=== PATIENT | female | born 1980 | race African-American/Black ===

== ENCOUNTER 2018-09-04 06:00 | Inpatient (IN) ==
[2018-08-29 12:29] LABS: Apearance,Urine CLOUDY (Clear); Bacteria,Urine Occasional /HPF (Few); Bilirubin,Urine Negative (Negative); Blood, Urine Negative (Negative); Glucose,Urine (UA) Negative (Negative); Ketones,Urine Negative (Negative); Mucus,Urine Occasional /LPF (Occasional); Nitrite,Urine Negative (Negative); Protein,Urine Negative; RBC,Urine 4 /HPF (0-4); Squamous Epithelial Cell,Urine Occasional /HPF (0-10); Urine Color Yellow (Yellow); Urine Specific Gravity 1.019 (1.001-1.035); WBC,Urine 1 /HPF (0-6)
[2018-08-29 12:32] LABS: Basophils % 0.4 % (0.0-0.8); Eosinophils # 0.2 10*3/uL (0.0-0.87); Eosinophils % 2.3 % (0.00-10.9); Hemoglobin 12.4 GM/DL (12.0-16.0); Immature Granulocytes % 0.3 %; Immature Granulocytes Absolute 0.02 #; Lymphocytes # 2.4 10*3/uL (1.4-4.0); Lymphocytes % 32.7 % (21.3-54.2); Mean Corpuscular HGB Conc 32.6 GM/DL (32-36); Mean Corpuscular Hemoglobin 29 PG (27-34); Mean Corpuscular Volume 88.6 FL (87-102); Mean Platelet Volume 10.7 FL (9.6-12.0); Monocytes # 0.7 10*3/uL (0.11-0.8); Monocytes % 9.3 % (1.7-12.7); Platelet Count 314 T/CUMM (130-400); Red Blood Count 4.29 MC/CUMM (3.8-5.5); Red Cell Distribution Width 13.2 % (9.3-17.3); White Blood Count 7.2 T/CUMM (4-12)
[2018-08-29 13:14] LABS: Alanine Aminotransferase 20 U/L (13-56); Albumin 3.5 G/DL (3.4-5.0); Alkaline Phosphatase 75 U/L (45-117); Aspartate Amino Transferase 16 U/L (0-37); Bilirubin,Total < 0.39 MG/DL (0.2-1.0); Blood Urea Nitrogen 9 MG/DL (7-18); Glucose 76 MG/DL (74-106); Osmolality,Calculated 272.7 MOS/KG (273-304); Potassium 3.7 MMOL/L (3.5-5.1); Sodium 138 MMOL/L (136-145); Total Protein 7.5 G/DL (6.4-8.3)
[2018-08-29 13:27] LABS: Risk Ratio 3.53
[2018-08-29 13:47] LABS: HIV Antigen/Antibody Result Nonreactive (Nonreactive)
[~2018-09-04 06:00] MED LIST: AMPICILLIN/SULBACTAM 3,000 MG VIAL ONE; AMPICILLIN/SULBACTAM 3,000 MG in SODIUM CHLORIDE 0.9% 100 ML IV ONE
[2018-09-04] MEDS ORDERED: PANTOPRAZOLE 40 MG VIAL IV ONE (06:29)
[2018-09-04] MEDS: LACTATED RINGERS 1,000 ML IV SCH ×3 (06:38→19:20)
[2018-09-04] MEDS ORDERED: ceFAZolin 1,000 MG VIAL ONE (07:41)
[2018-09-04] MEDS ORDERED: METHYLENE BLUE 10 ML VIAL IV ONE ×2 (09:16→09:33)
[2018-09-04] MEDS ORDERED: SEVOFLURANE 1 UNIT/15 MINUTE INH ONE (10:35)
[2018-09-04] MEDS ORDERED: PROPOFOL 200 MG/20 ML VIAL IV ONE (10:35)
[2018-09-04] MEDS ORDERED: MIDAZOLAM 2 MG/2 ML VIAL ONE (10:35)
[2018-09-04] MEDS ORDERED: DEXAMETHASONE 10 MG/1 ML VIAL ONE (10:36)
[2018-09-04] MEDS ORDERED: fentaNYL 100 MCG/2 ML VIAL ONE ×2 (10:36)
[2018-09-04] MEDS ORDERED: ONDANSETRON 4 MG/2 ML VIAL ONE ×2 (10:36→10:50)
[2018-09-04] MEDS ORDERED: ePHEDrine 50 MG/ML AMP ONE (10:36)
[2018-09-04] MEDS ORDERED: GLYCOPYRROLATE 0.4 MG/2 ML VIAL ONE (10:36)
[2018-09-04] MEDS ORDERED: NEOSTIGMINE 10 MG/10 ML VIAL ONE ×2 (10:37)
[2018-09-04] MEDS ORDERED: ROCURONIUM 100 MG/10 ML VIAL IV ONE (10:37)
[2018-09-04] MEDS ORDERED: PHENYLEPHRINE 0.5% NASAL SPRAY 15 ML BOTTLE BOTH NARES ONE (10:38)
[2018-09-04] MEDS ORDERED: KETOROLAC 30 MG/1 ML VIAL ONE (10:38)
[2018-09-04] MEDS ORDERED: LIDOCAINE 2% TOP JELLY 5 ML TUBE TOP ONE (10:38)
[2018-09-04] MEDS ORDERED: LACTATED RINGERS 2,000 ML IV ONE (10:39)
[2018-09-04] MEDS ORDERED: ACETAMINOPHEN 1,000 MG/100 ML VIAL IV ONE (10:39)
[2018-09-04] MEDS ORDERED: PHENYLEPHRINE 1 MG/10 ML SYRINGE IV ONE (10:39)
[2018-09-04 10:40] LABS: Apearance,Urine CLEAR (Clear); Bacteria,Urine Occasional /HPF (Few); Bilirubin,Urine Negative (Negative); Blood, Urine Negative (Negative); Glucose,Urine (UA) Negative (Negative); Ketones,Urine Negative (Negative); Nitrite,Urine Negative (Negative); Protein,Urine Negative; RBC,Urine <1 /HPF (0-4); Squamous Epithelial Cell,Urine Occasional /HPF (0-10); Urine Color Yellow (Yellow); Urine Specific Gravity 1.012 (1.001-1.035); WBC,Urine 1 /HPF (0-6)
[2018-09-04] MEDS ORDERED: BENZOCAINE/MENTHOL LOZENGE 18/BOX PO PRN (10:41)
[2018-09-04] MEDS ORDERED: BISACODYL 10 MG SUPP RECTAL PRN (10:41)
[2018-09-04] MEDS ORDERED: ONDANSETRON 4 MG/2 ML VIAL IV PRN ×2 (10:41→10:54)
[2018-09-04] MEDS ORDERED: MAGNESIUM HYDROXIDE SUSP 30 ML UDCUP PO PRN (10:41)
[2018-09-04] MEDS ORDERED: ACETAMINOPHEN 325 MG TABLET PO PRN (10:41)
[2018-09-04] MEDS: HYDROmorphone 2 MG/1 ML VIAL IV PRN ×6 (10:50→14:55)
[2018-09-04] MEDS ORDERED: HYDROmorphone 2 MG/1 ML VIAL ONE (10:50)
[2018-09-04] MEDS ORDERED: MEPERIDINE 50 MG/1 ML VIAL ONE (12:45)
[2018-09-04] MEDS: MEPERIDINE 50 MG/1 ML VIAL IV PRN ×3 (12:50→20:13)
[2018-09-04] MEDS: ceFAZolin 1,000 MG in SYRINGE 1 EACH IV SCH (16:45)
[2018-09-04] MEDS: OXYBUTYNIN XL 10 MG TABLET PO SCH (16:48)
[2018-09-05] MEDS: MEPERIDINE 50 MG/1 ML VIAL IV PRN ×2 (01:13→07:32)
[2018-09-05] MEDS: ceFAZolin 1,000 MG in SYRINGE 1 EACH IV SCH (01:16)
[2018-09-05] MEDS: LACTATED RINGERS 1,000 ML IV SCH (03:35)
[2018-09-05 06:07] LABS: Hematocrit 22.3 VOL% (35.7-47.0); Hemoglobin 7.4 GM/DL (12.0-16.0); Immature Granulocytes % 0.4 %; Immature Granulocytes Absolute 0.05 #; Lymphocytes # 1.6 10*3/uL (1.4-4.0); Lymphocytes % 12.9 % (21.3-54.2); Mean Corpuscular HGB Conc 33.2 GM/DL (32-36); Mean Corpuscular Hemoglobin 29 PG (27-34); Mean Corpuscular Volume 88.1 FL (87-102); Mean Platelet Volume 11.5 FL (9.6-12.0); Monocytes # 1.2 10*3/uL (0.11-0.8); Monocytes % 10.2 % (1.7-12.7); Neutrophils # 9.3 10*3/uL (1.4-7.4); Neutrophils % 76.5 % (38.7-73.9); Platelet Count 184 T/CUMM (130-400); Red Blood Count 2.53 MC/CUMM (3.8-5.5); Red Cell Distribution Width 13.6 % (9.3-17.3); White Blood Count 12.2 T/CUMM (4-12)
[2018-09-05] MEDS ORDERED: SODIUM CHLORIDE 0.9% 1,000 ML IV PRN (07:10)
[2018-09-05] MEDS ORDERED: Dextroamphetamine/Amphetamine [Adderall Xr 30 Mg Capsule] PO SCH (09:00)
[2018-09-05] MEDS: hydroCHLOROthiazide 12.5 MG CAPSULE PO SCH (09:09)
[2018-09-05] MEDS: OXYBUTYNIN XL 10 MG TABLET PO SCH (09:12)
[2018-09-05] MEDS: DOCUSATE SODIUM 100 MG CAPSULE PO PRN ×2 (09:13→20:41)
[2018-09-05] MEDS: amLODIPine 10 MG TABLET PO SCH (09:13)
[2018-09-05] MEDS: oxyCODONE/ACETAMINOPHEN 5-325 MG TABLET PO PRN ×2 (15:14→22:35)
[2018-09-05 18:03] LABS: Basophils % 0.1 % (0.0-0.8); Eosinophils % 0.2 % (0.00-10.9); Hemoglobin 9.4 GM/DL (12.0-16.0); Immature Granulocytes % 0.4 %; Immature Granulocytes Absolute 0.06 #; Lymphocytes # 3.2 10*3/uL (1.4-4.0); Lymphocytes % 23.4 % (21.3-54.2); Mean Corpuscular HGB Conc 32.4 GM/DL (32-36); Mean Corpuscular Hemoglobin 29 PG (27-34); Mean Corpuscular Volume 89.5 FL (87-102); Mean Platelet Volume 11.3 FL (9.6-12.0); Monocytes # 1.1 10*3/uL (0.11-0.8); Monocytes % 7.7 % (1.7-12.7); Neutrophils # 9.3 10*3/uL (1.4-7.4); Neutrophils % 68.2 % (38.7-73.9); Platelet Count 184 T/CUMM (130-400); Red Blood Count 3.24 MC/CUMM (3.8-5.5); Red Cell Distribution Width 13.8 % (9.3-17.3); White Blood Count 13.7 T/CUMM (4-12)
[2018-09-05] MEDS ORDERED: METOCLOPRAMIDE 10 MG TABLET PO PRN (20:00)
[2018-09-05] MEDS: METOCLOPRAMIDE 10 MG TABLET PO SCH (20:41)
[2018-09-05] MEDS: LINACLOTIDE 145 MCG CAPSULE PO SCH (20:42)
[2018-09-05] MEDS: IBUPROFEN 800 MG TABLET PO PRN (22:38)
[2018-09-06] MEDS: METOCLOPRAMIDE 10 MG TABLET PO SCH ×3 (04:12→21:25)
[2018-09-06] MEDS: oxyCODONE/ACETAMINOPHEN 5-325 MG TABLET PO PRN ×3 (04:13→23:01)
[2018-09-06] MEDS: IBUPROFEN 800 MG TABLET PO PRN ×2 (05:13→23:01)
[2018-09-06] MEDS: LINACLOTIDE 145 MCG CAPSULE PO SCH (08:10)
[2018-09-06] MEDS: amLODIPine 10 MG TABLET PO SCH (09:43)
[2018-09-06] MEDS: OXYBUTYNIN XL 10 MG TABLET PO SCH (09:43)
[2018-09-06] MEDS: hydroCHLOROthiazide 12.5 MG CAPSULE PO SCH (09:43)
[2018-09-06] MEDS ORDERED: MAGNESIUM CITRATE 300 ML BOTTLE PO ONE (10:56)
[2018-09-06] MEDS: DOCUSATE SODIUM 100 MG CAPSULE PO PRN (21:25)
[2018-09-07] MEDS: METOCLOPRAMIDE 10 MG TABLET PO SCH ×3 (06:57→21:25)
[2018-09-07] MEDS: oxyCODONE/ACETAMINOPHEN 5-325 MG TABLET PO PRN ×3 (06:58→18:41)
[2018-09-07] MEDS: LINACLOTIDE 145 MCG CAPSULE PO SCH (07:45)
[2018-09-07] MEDS: OXYBUTYNIN XL 10 MG TABLET PO SCH (08:53)
[2018-09-07] MEDS: DOCUSATE SODIUM 100 MG CAPSULE PO PRN ×2 (08:53→21:28)
[2018-09-07] MEDS: IBUPROFEN 800 MG TABLET PO PRN (11:46)
[2018-09-07] MEDS: amLODIPine 10 MG TABLET PO SCH (17:13)
[2018-09-07] MEDS: hydroCHLOROthiazide 12.5 MG CAPSULE PO SCH (17:13)
[2018-09-08] MEDS: oxyCODONE/ACETAMINOPHEN 5-325 MG TABLET PO PRN ×2 (01:36→12:22)
[2018-09-08] MEDS: METOCLOPRAMIDE 10 MG TABLET PO SCH ×2 (04:21→14:02)
[2018-09-08] MEDS: IBUPROFEN 800 MG TABLET PO PRN ×2 (04:22→12:22)
[2018-09-08] MEDS: OXYBUTYNIN XL 10 MG TABLET PO SCH (09:39)
[2018-09-08 11:42] VITALS: BP 102/69
[2018-09-08] MEDS: LINACLOTIDE 145 MCG CAPSULE PO SCH (14:01)
[2018-09-08] MEDS: hydroCHLOROthiazide 12.5 MG CAPSULE PO SCH (14:02)
[2018-09-08] MEDS: amLODIPine 10 MG TABLET PO SCH (14:02)
== END 2018-09-08 14:00 | disposition home or self-care (01) | DRG 743 ==
LOC: N.SDSINP 06:00 → N.OB 09:07
PROVIDERS: ADMIT Obstetrics & Gynecology; ATTEND Obstetrics & Gynecology